=== PATIENT | female | born 1945 | race Caucasian/White ===

== ENCOUNTER 2016-07-20 10:58 | Inpatient (IN) | payer OTHER ==
--- NOTE | ~2016-07-20 | XA203 ---
[facility] A Service of [facility] & [facility] RADIOLOGY TEXT RESULTS PATIENT: DAWOOD MUÑOZ LOCATION: [address]07[address]03 : [birth year] UNIT #: [id number] AGE: [address]: Ana Farias MD SEX: F ORDER DR: [id number] [facility] [address] [facility] [place] [facility]. [place], [place] [address] [id number] I MR#: [id number] #: [id number] NAME: DAWOOD MUÑOZ : 1945 SEX: F STUDY DATE/TIME: 07/24/2016 10:39 UNIT: [facility] ROOM: [facility] STUDY DESCRIPTION: XA Thoracentesis Attending Physician: Ana Farias M.D. Referring Physician: Gee Lopes M.D. Ordering Physician: Ana Farias M.D. Primary Care Physician: Kristin Lopez M.D. MEDICAL IMAGING REPORT This report is preliminary unless electronic signature is present EXAM Ultrasound of the left hemithorax. DATE OF EXAM 07/24/2016 HISTORY left pleural effusion, increasing oxygen requirement FINDINGS Preliminary ultrasound of the left hemithorax was performed. This demonstrated dense consolidation throughout the left hemithorax and the procedure was subsequently terminated. IMPRESSION Insufficient volume of fluid for thoracentesis at this time. Dictated by... Raquel Mclain M.D. THIS IS AN ELECTRONICALLY VERIFIED REPORT Raquel Mclain M.D. at 07/25/2016 8:01 PM AFF/julio TD: 07/24/2016 21:39 JOB #: [id number] MEDICAL IMAGING REPORT COPY
--- NOTE | ~2016-07-20 | CO ---
Unit #: [id number] #: [id number] Patient: DAWOOD MUÑOZ [id number] [address] [place], [place] [address] [id number] I MR#: [id number] NAME: DAWOOD MUÑOZ ROOM: [facility] Age: 70 Sex: F Admission Date: 07/20/2016 : 1945 Attending Physician: Ana Farias M.D. Primary Care Physician: Kristin Lopez M.D. Consultation Date: 07/25/2016 CONSULTATION REPORT REASON FOR CONSULTATION Lung cancer, please evaluate. HISTORY OF PRESENT ILLNESS Ms. Dawood Muñoz is a 70-year-old with a history of severe COPD, chronic hypoxemia, hypertension, hyperlipidemia, cervical cancer, who presents to the emergency room complaining of shortness of breathing on 07/20/2016. She reported she had a week history of shortness of breathing productive cough. In the ER, O2 saturations were 93% on 2 L, she was tachycardic with a pulse rate of 123 and a respiratory rate of 25. Chest x-ray followed by CT scan showed dense consolidation involving the left lung with a left pleural effusion. Her right upper lobe lung mass was noted and she admit for further evaluation including treatment for pneumonia. During hospitalization, consolidation of the left lung became progressively worse and she underwent diagnostic bronchoscopy with bronchoalveolar lavage on 07/22/2016. Bronchoscopy; the left main, left upper lobe, and left lower lobe, and lingular bronchial segment and bronchi were all swollen with no significant secretions. Bronchoalveolar lavage obtained from these sections showed malignant cells consistent with non-small cell lung cancer. She subsequently underwent and doing the same procedure. Bronchoscopy of the right mainstem and right upper lobe bronchial tree and underwent a bronchial biopsy of the presumed right upper lobe lung mass which showed suspicious aggregate of highly atypical cells suspicious for malignancy. Ms. Muñoz is currently is barely oxygenating on high-flow oxygen and is currently do not resuscitate. She tells me that she has had no changes in appetite and weight except what accompanied the admission. She was evaluated by Dr. Matt Swenson in 2011 in [facility] for a right lung lesion which apparently was told to be benign. PAST SURGICAL HISTORY Cervical cancer diagnosed 5 years ago which was treated with conization, radiation therapy, and chemotherapy. Severe COPD, hypertension, hyperlipidemia, depression, and anxiety. PAST SURGICAL HISTORY Lung biopsy, cervical conization, and cardiac catheterization. ALLERGIES She is allergic to Keflex. HOME MEDICATIONS Include Avapro and inhalers at the time of admission. Unit #: [id number] #: [id number] Patient: DAWOOD MUÑOZ SOCIAL HISTORY She is single. Lives by herself. Does not drink any alcohol. She smokes a pack a day. She has one daughter who lives locally and two sons in the [place]. FAMILY HISTORY Negative for cancer. REVIEW OF SYSTEMS A 14-point review of system taken. CONSTITUTIONAL: As discussed above. EYES: Negative. EARS, NOSE, MOUTH, AND THROAT: Negative. CARDIOVASCULAR: No chest pain or palpitation. RESPIRATORY: As discussed above. GASTROINTESTINAL: Negative. GENITOURINARY: Negative. NEUROLOGIC: Negative. ALLERGIC/LYMPHATIC: Negative. SKIN: Negative. PSYCHIATRIC: Normal affect. PHYSICAL EXAMINATION GENERAL: She is awake, alert, and oriented x3, lying in bed, in moderate distress secondary to tachypnea, as her daughter is at bedside. VITAL SIGNS: Temperature is 99.2, pulse is 88, respiratory rate is 18, blood pressure 126/44, O2 saturations is 94% on high-flow oxygen. HEENT: Shows pupils are equal and reactive well to light. Mucous membranes are slightly dry. NECK: Without adenopathy, JVD, or thyromegaly. LUNGS: Coarse breath sounds over the left lung. HEART: First and second heart sounds are heard with mild tachycardia. ABDOMEN: Soft and nontender. Liver and spleen are not palpable. EXTREMITIES: Warm and good pulses. No edema, cyanosis, or clubbing. NEUROLOGIC: She is awake, alert, and oriented x3 without any focal findings. DIAGNOSTIC STUDIES LABORATORY RESULTS: CBC with a white count of 16.5, hemoglobin 13.8, platelets 189,000. Her basic metabolic panel shows a BUN of 24, creatinine is 1. IMAGING STUDIES: CT scan of the chest was personally reviewed by me and with Dr. Horton of Pulmonary, it shows a white-out of the left lung along with a spiculated mass in the right upper lobe, prominent precarinal lymph node, and indeterminate nondisplaced fracture of the right fifth and sixth ribs. ASSESSMENT AND PLAN Ms. Dawood Muñoz is a 70-year-old with a history of severe chronic obstructive pulmonary disease, longstanding tobacco usage, admitted with dense consolidation of the left lung presumed to be a community-acquired pneumonia. This has been treated with broad-spectrum antibiotics without any treatment improvement and continued hypoxemia requiring high flow oxygen. She has had a bronchoscopy with bronchoalveolar lavage revealing a malignancy of the left lower lobe of the lung and suspicious cells from right upper lobe lung biopsy of a previously biopsied lung mass, according to her previous biopsy of lung mass was benign. I had an extensive Unit #: [id number] #: [id number] Patient: DAWOOD MUÑOZ discussion with patient, daughter, and Dr. Horton. At this point, her respiratory status is extremely precarious and she has made herself do not resuscitate given the low likelihood extubation if she was to be intubated. I have discussed that certainly she has an advanced lung cancer of the left lung with possible lymphangitic spread and possible metastasis to the right lung although this was previously biopsied as benign and current biopsy only shows suspicious cells. Discussed with her that palliative chemotherapy or in fact any therapy including immune checkpoint inhibitor therapy would be highly unlikely to reverse current course of respiratory failure. If she did improve certainly these would be viable options after confirmation of stage 2 disease. Given her severe chronic obstructive pulmonary disease, hypoxemia, and need for high-flow oxygen, she is critically ill. She requests a second pulmonary opinion, I will get Dr. Ash to see her during this hospitalization. Discussed we will follow her during hospital stay to await any improvement. Discussed about her advanced directives. Thank you for allowing me to participate in her care and I will follow with you. Dictated by... Eliseo Elder M.D. JAMIA/andrade TD: 07/26/2016 05:54 JOB #: [id number] CONSULTATION REPORT X Eliseo Elder MD X CONSULTATION REPORT
--- NOTE | ~2016-07-20 | CT57 ---
[facility] A Service of [facility] & [facility] RADIOLOGY TEXT RESULTS PATIENT: DAWOOD MUÑOZ LOCATION: [address]07-03 : [birth year] UNIT #: [id number] AGE: [address]: Ana Farias MD SEX: F ORDER DR: [id number] [facility] [address] [facility]. [place], [place] [address] [id number] I MR#: [id number] Acc #: [id number] NAME: DAWOOD MUÑOZ : 1945 SEX: F STUDY DATE/TIME: 07/24/2016 10:58 UNIT: [facility] ROOM: [facility] STUDY DESCRIPTION: CT Chest Wo Cont Attending Physician: Ana Farias M.D. Ordering Physician: Raquel Mclain M.D. Primary Care Physician: Kristin Lopez M.D. MEDICAL IMAGING REPORT This report is preliminary unless electronic signature is present EXAM CT of the chest without contrast HISTORY Ms. Muñoz is a 70-year-old woman who underwent a CT scan of the chest on 07/20/2016 for cough and congestion. This demonstrated dense consolidation throughout the left lung which was favored to represent pneumonia. She was referred for thoracentesis on 07/22/2016 but was not found to have significant fluid at that time. She has developed worsening opacification of the left hemithorax when compared to prior studies and her oxygen requirement has increased. A repeat evaluation for thoracentesis was performed which, again, appeared to show dense consolidation with minimal fluid. This exam is performed for further evaluation. TECHNIQUE Axial CT images were obtained from thoracic inlet through the dome of the diaphragm. No intravenous contrast material was administered. This CT exam was performed with one or more of the following radiation dose reduction techniques: automatic exposure control, adjustment of mA and/or kV according to patient size, and iterative reconstruction. COMPARISON Comparison is made to the prior chest CT from 07/20/2016. FINDINGS Since prior examination, this patient has developed complete opacification of the left hemithorax. This is related to dense consolidation throughout the left lung. Patient's left main stem bronchus is nearly occluded. Small amount of pleural fluid is noted but the majority of the appearance of the left hemithorax is related to this dense consolidation. This patient has a small right pleural effusion which has increased when compared to the prior study. Irregularly marginated right upper lobe STS. [facility] A Service of [facility] & [facility] RADIOLOGY TEXT RESULTS PATIENT: DAWOOD MUÑOZ LOCATION: [facility] CICCU2-02 : 41 UNIT #: [id number] AGE: [address]: Ana Farias MD SEX: F ORDER DR: nodule is again seen and some images I do measure as slightly larger measuring up to 2.3 x 2.0 cm, previously 2.0 x 1.9 cm. Interval increase in size would be more suggestive of a benign process, but certainly its morphology remains concerning in this patient with background emphysematous changes. The thyroid gland, trachea, and esophagus appear unremarkable. There is a small pericardial effusion. A precarinal lymph node is increased in size now measuring 1.8 x 1.6 cm. Thoracic aorta measures within normal size limits. Images through the upper abdomen demonstrate a lipid-rich left adrenal adenoma. There is also an exophytic structure arising from the left kidney which measures higher in density than a simple cyst, is incompletely assessed on this study and measures at least 3.3 x 2.8 cm. A second hypoattenuating lesion is seen on the right kidney which measures about 9 mm in size. It also measures higher density than a simple cyst. Review of bony windows demonstrates old right-sided rib fractures. I do not see any aggressive osseous abnormalities. IMPRESSION 1. Since prior study, this patient has developed complete opacification of the left hemithorax. This is primarily related to dense consolidation and atelectasis of the left lung. There is severe obstruction of the patient's left main stem bronchus with complete obstruction of the bronchi to the lower and upper lobes. While the patient does have perhaps moderate pleural fluid on the left, it is not amenable to drainage due to surrounding lung. While findings within the left hemithorax could reflect pneumonia, the possibility of malignancy should also be considered. Further evaluation with bronchoscopy is strongly recommended. 2. Within the right upper lobe, there is an irregularly marginated mass. I measure it as slightly larger on some of the images. Interval change in size, would certainly be suggestive of a benign process but its morphology remains concerning given background emphysematous changes. Continued surveillance is recommended. 3. A small right pleural effusion has increased when compared to the prior study. 4. Precarinal lymph node has increased in size when compared to prior study likely reactive. Please note that while findings 5. Patient has 2 low-attenuation lesions arising from the kidneys. These measure higher in density than simple cysts. They may reflect, proteinaceous or hemorrhagic cysts, but I would suggest further evaluation with dedicated renal ultrasound. 6. Lipid-rich left adrenal adenoma. 7. Small pericardial effusion. 8. Also noted, but not mentioned in the report, is a left breast nodule. This appears to have a biopsy clip associated with it and correlation with those biopsy results is recommended. STS. [facility] A Service of [facility] & [facility] RADIOLOGY TEXT RESULTS PATIENT: DAWOOD MUÑOZ LOCATION: [place] [address] : [birth year] UNIT #: [id number] AGE: [address]: Ana Farias MD SEX: F ORDER DR: Dictated by... Raquel Mclain M.D. THIS IS AN ELECTRONICALLY VERIFIED REPORT Raquel Mclain M.D. at 07/24/2016 5:31 PM AFF/aa TD: 07/24/2016 14:44 JOB #: [id number] MEDICAL IMAGING REPORT COPY
--- NOTE | ~2016-07-20 | CO ---
Unit #: [id number] #: [id number] Patient: DAWOOD MUÑOZ [id number] [facility]. [place] [id number] [facility]. [place], [place] [address] [id number] I MR#: [id number] NAME: DAWOOD MUÑOZ. ROOM: [facility] Age: 70 Sex: F Admission Date: 07/20/2016 : 1945 Attending Physician: Ana Farias M.D. Primary Care Physician: Kristin Lopez M.D. CONSULTATION REPORT We were asked to see her by Dr. Anamaria Horton for second opinion about her lung cancer. HISTORY OF PRESENT ILLNESS Ms. Muñoz is a very pleasant 70-year-old female, who unfortunately smoked right up until this recent admission. She was admitted on 07/20/2016 with increasing shortness of air. She was thought to have left lower lobe pneumonia and it was noted that she had a right upper lobe lung density. She underwent bronchoscopy by Dr. Anamaria Horton on 07/22/2016 with a swelling of the left-sided bronchi; although, apparently he could get through to the left upper lobe and the left lower lobe. He did the BAL first and he did the right upper lobe transbronchial biopsies second. The BAL from the left lower lobe was consistent with non-small cell lung cancer, and the right upper lobe biopsy was suspicious. She has had some issues after the bronchoscopy went into respiratory failure, required BiPAP and is presently on a heated high-flow, high humidity oxygen at 63%. She does have a little bit of cough. Surprisingly, she said she actually gained weight lately. She is eating here in the hospital. She complains of some mid chest pain, but she did not complain of any bone pain. She did have a history of COPD. PAST MEDICAL HISTORY Otherwise significant for cervical cancer. I thought that was about 2009 or so and she did have chemo and maybe radiation for that. History of hypertension. She had a heart catheterization about 2012. She had a needle biopsy at [facility] of a nodule about 2012 and that was negative and then was followed briefly, but then apparently she moved to [place] and I do not think she followed it anymore after that. MEDICATIONS On admission had included metoprolol 50 mg p.o. daily, Zoloft 100 mg p.o. daily, Protonix 40 mg p.o. daily, Avapro 300 mg p.o. daily, Lozol 2.5 mg p.o. daily, Ventolin 2 puffs q.4 p.r.n., Lipitor 20 mg p.o. at bedtime, Combivent MDI q.6 p.r.n. ALLERGIES Keflex, penicillin, influenza virus. SOCIAL HISTORY She smoked up until early this admission. I think about a pack a day. FAMILY HISTORY Significant for brother and a sister with COPD. Unit #: [id number] #: [id number] Patient: DAWOOD MUÑOZ REVIEW OF SYSTEMS She has had diarrhea off and on. She says ever since her chemo, I guess for her cervical cancer, this is not new. She did lose weight after her , but as I said, she actually says she has gained weight lately. Really not complained of nausea. No leg swelling. No skin complaints. All other systems are negative except as mentioned. PHYSICAL EXAMINATION GENERAL: She present as an older female, in no acute distress. VITAL SIGNS: Temperature was 98.1, pulse 64, respirations 18, blood pressure 113/46, saturation 92%, but she is on 63% high humidified, high-flow oxygen. NECK: Without adenopathy. LUNGS: Evaluation of her lungs reveals that her breathing is not labored. She has very significant decreased breath sounds left side. I can hear some breath sounds left anteriorly and virtually no breath sounds left posteriorly. She does have fairly clear breath sounds on the right. HEART: Regular. ABDOMEN: Soft, and bowel sounds are present. EXTREMITIES: Without edema. NEUROLOGIC: She is awake and alert. DIAGNOSTIC STUDIES IMAGING STUDIES: Her CAT scan to my exam had revealed a right upper lobe density. To my exam, she had a left pleural effusion, a left lower lobe infiltrate and it really looked to me like she had some cutoff of air flow at the left main stem. I was actually quite surprised that Dr. Anamaria Horton was able to get the scope as far in as he could on that left side. Her pathology was read as suspicious for malignancy, highly atypical cells on the right upper lobe biopsy. The cytology was read as positive for malignant cells, most suggestive of a poorly differentiated non-small cell lung cancer, and that was the bronchoalveolar lavage. I cannot find anything from thoracentesis. Her cultures revealed rare yeast from the bronch and sputum was 2+ normal respiratory raj. White blood cell count was 22.7, hemoglobin and hematocrit of 14.1 and 43.6, 186,000 platelets. Serum chemistries; BUN was 27, creatinine was 1, magnesium was low at 1.4. Albumin low at 2.4. She had a blood gas from the 19 at 2 L, pH of 7.48, pCO2 of 40, PO2 of 62. IMPRESSION 1. Non-small cell lung cancer, which appears bilaterally in my opinion and probably therefore is stage IV. The only other consideration, which probably was not going to matter in this case is that there are two different cancers. They could be indeed two different non-small cell lung cancers. Either way that probably will not change much. 2. Acute versus acute on chronic hypoxemic respiratory failure. 3. Left pleural effusion. 4. Left lower lobe pneumonia, which may be postobstructive. The question is whether that obstruction can be improved in any way. The description of the bronchus such that the mucosa was edematous and I do not know whether brachytherapy would be helpful, because it would absolutely depend on that edema being because of submucosal tumor. 5. Chronic obstructive pulmonary disease. PLAN She obviously is not a surgical candidate. Considerations would be chemotherapy plus or minus radiation. Radiation to the right upper lobe Unit #: [id number] #: [id number] Patient: DAWOOD MUÑOZ mass in the absence of treating anything on the left side would obviously be of no value. The question is whether she can tolerate chemotherapy and I would absolutely defer to Oncology for that opinion; although, I will say that it is interesting that she supposedly gained weight lately. I will be happy to discuss this as needed and note that I have discussed this all with her son, Imtiaz. I have somewhat discussed it with the patient after I found out how much she knew. I have not talked about prognosis to the patient although. I certainly have suggested to her son that her prognosis is poor. Thank you very much for allowing me to participate in care of this patient. Dictated by... Manuel Garvey/andrade TD: 07/27/2016 15:16 JOB #: [id number] CC: Manuel Llamas M.D. Angela Wetherton, M.D. CONSULTATION REPORT X Gil Ash MD CONSULTATION REPORT
--- NOTE | ~2016-07-20 | DS ---
Unit #: [id number] #: [id number] Patient: DAWOOD MUÑOZ [id number] [address] [address] [id number] I MR#: [id number] NAME: DAWOOD MUÑOZ. ROOM: [facility] Age: 70 Sex: F Admission Date: 07/20/2016 : 1945 Discharge Date: 07/29/2016 Attending Physician: José Manuel Demarco M.D. Primary Care Physician: Kristin Lopez M.D. DISCHARGE SUMMARY SUMMARY Please see Dr. Farias's discharge summary for details of hospital stay. Potentially, through her hospital course, the patient was noted to have acute hypoxic respiratory failure, stage 4 non-small cell lung carcinoma, malignant effusion, postobstructive pneumonia. Numerous services were consulted including HMA, pulmonary services, Hem/Onc services as well as radiation oncology. Unfortunately, her prognosis was deemed to be very poor. She continued to require BiPAP support and, unfortunately, made insignificant progress. Oncology services as well as radiation recommended no further treatment options that are available. Discussion was initiated with patient's son who is present at bedside. He was appraised of the overall poor prognosis and he wished for the patient to be initiated on comfort care measures only and, therefore, in accordance with his wishes as well as family wish, the patient will be started on comfort care measures only including withdrawal of BiPAP and other supportive measures and morphine, Ativan and Robinul will now be initiated. CURRENT CLINICAL DIAGNOSIS 1. Non-small cell lung carcinoma, stage 4, with malignant pleural effusion. 2. Acute hypoxic respiratory failure. 3. Postobstructive pneumonia. 4. Anxiety. 5. Prior history of cervical cancer. 6. Failure to thrive. 7. Tobacco abuse. 8. Hypertension. DISPOSITION Comfort care measures only. Dictated by... José Manuel Demarco M.D. ISN/df Unit #: [id number] #: [id number] Patient: DAWOOD MUÑOZ TD: 08/01/2016 06:40 JOB #: [id number] DISCHARGE SUMMARY X José Manuel Demarco MD DISCHARGE SUMMARY
--- NOTE | ~2016-07-20 | A ---
[facility] Nutrition Therapy DATE: 07/28/16 Patient: DAWOOD MUÑOZ Physician: MICHELLE Address: [address] Room/Bed: [address], Zip: [place] [address] Admit Date: 07/20/16 Date of : 41 Height: 5 7 Weight: 145 66 NUTRITIONAL ASSESSMENT: REASON: LOS IN ICU ASSESSMENT PT IS 70 Y.O. FEMALE ADMITTED FOR SOA, ACUTE RESPIRATORY FAILURE PMH: SEVERE COPD, STAGE IV NON-SMALL CALL LUNG CANCER, HTN, HLD, CERVICAL CANCER S/P CHEMOTHERAPY & RADIATION Anthropometrics: 5'7", WT: 135# (BEDSIDE) (61 KG), BMI: 21.1, 100%IBW Labs: GLU: 130, BUN: 32, CA+:8.2, ALB: 2.4, M.4 Meds: COLACE, SOLU-MEDROL, ZOFRAN, LIPITOR, PROTONIX, LEVAQUIN I/O & Bowel function: 2213/1421, 1 BM NOTED Skin Integrity: DRY SKIN NOTED ALL OVER BODY Estimated Nutrition Needs: INCREASED NUTRIENT NEEDS 2' CURRENT CONDITION, PMH, FAIR PO INTAKE AND APPETITE Assessment: CHART REVIEWED AND EVENTS NOTED. PT SEEN FOR LOS IN ICU (5+ DAYS). PT REPORTS APPETITE SLOWLY IMPROVING, NOTING NO C/O N/V/D. PT HAD BREAKFAST TRAY AT BEDSIDE-NOTED PT ATE ~90%. PT REPORTS DRINKING 3 ENSURE SHAKES DAILY IN ADDITION. PT REPORTS HER WEIGHT HAS FLUCTUATED PAST FEW YEARS. THIS RD ENCOURAGED ADEQUATE KCAL, PROTEIN AND FLUID INTAKE, PT AGREED. PT REPORTED NO DIET QUESTIONS AT THIS TIME. RD TO FOLLOW. SEE RECOMMENDATIONS BELOW. Dx: INADEQUATE NUTRIENT INTAKE R/T DECREASED APPETITE, CURRENT CONDITION AEB PT REPORT ABOVE. Intervention: 1. HH DIET 2. ENSURE SHAKES TID Monitoring, Evaluation and Goals: 1. PO INTAKE; PROVIDE AND CONSUME ADEQUATE NUTRITION W/NO C/O N/V/D (PO>50%) 2. WEIGHTS; MAINTAIN WEIGHT, PREVENT ANY WEIGHT LOS 3. LABS; WNL 4; GI; PROMOTE REGULAR GI FUNCTION MONITOR: -PO INTAKE/APPETITE [facility] Nutrition Therapy DATE: 07/28/16 Patient: DAWOOD MUÑOZ Physician: MICHELLE Address: [address] Room/Bed: [facility] [facility], Zip: [place] [address] Admit Date: 07/20/16 Date of : 41 Height: 5 7 Weight: 145 66 -WEIGHTS -SUPPLEMENT INTAKE -LABS Recommendations: 1. CONTINUE TO ENCOURAGE ADEQUATE KCAL, PROTEIN AND FLUID INTAKE 2. IF PO INTAKE <50%, RECOMMEND TO CHANGE DIET TO REGULAR TO ALLOW MORE FOOD CHOICES RD WILL F/U PER PROTOCOL PT IS MODERATELY COMPROMISED Respectfully, AZIZA VILLALBA MS, RD, LD Food and Nutritional Services [facility] cc: client file
--- NOTE | ~2016-07-20 | CT71 ---
[facility] A Service of [facility] & [facility] RADIOLOGY TEXT RESULTS PATIENT: DAWOOD MUÑOZ LOCATION: [address] : [birth year] UNIT #: [id number] AGE: [address]: Ana Farias MD SEX: F ORDER DR: [id number] [facility] [address] [facility]. [place], [place] [address] [id number] I MR#: [id number] Acc #: [id number] NAME: DAWOOD MUÑOZ : 1945 SEX: F STUDY DATE/TIME: 07/22/2016 16:22 UNIT: [facility] ROOM: [facility] STUDY DESCRIPTION: CT Head Wo Contrast Attending Physician: Ana Farias M.D. Ordering Physician: Gee Lopes M.D. Primary Care Physician: Kristin Lopez M.D. MEDICAL IMAGING REPORT This report is preliminary unless electronic signature is present EXAM Head CT without contrast HISTORY Episode of left-sided weakness today lasting 10 minutes. TECHNIQUE Axial images were obtained without contrast. This CT exam was performed with one or more of the following radiation dose reduction techniques: automatic exposure control, adjustment of mA and/or kV according to patient size, and iterative reconstruction. FINDINGS Generalized atrophy is noted. It is more prominent around the cortex than centrally. There is no evidence of mass lesion, hemorrhage or edema. No midline shift is noted. Extraaxial structures are unremarkable. IMPRESSION Atrophy. No acute findings. Dictated by... Panda Avila M.D. THIS IS AN ELECTRONICALLY VERIFIED REPORT Panda Avila M.D. at 07/23/2016 10:24 AM RLF/angelia TD: 07/22/2016 21:46 JOB #: [id number] [facility] A Service of [facility] & [facility] RADIOLOGY TEXT RESULTS PATIENT: DAWOOD MUÑOZ LOCATION: [facility] : 43 UNIT #: [id number] AGE: [address]: Ana Farias MD SEX: F ORDER DR: MEDICAL IMAGING REPORT COPY
--- NOTE | ~2016-07-20 | CT23 ---
[facility] A Service [facility] RADIOLOGY TEXT RESULTS PATIENT: DAWOOD MUÑOZ LOCATION: [address]03 : [birth year] UNIT #: [id number] AGE: [address]: Ana Farias MD SEX: F ORDER DR: [id number] [facility] [address]. [place], [place] [address] [id number] I MR#: [id number] Acc #: [id number] NAME: DAWOOD MUÑOZ : 1945 SEX: F STUDY DATE/TIME: 07/22/2016 16:28 UNIT: [facility] ROOM: [facility] STUDY DESCRIPTION: CT Angio Neck Attending Physician: Ana Farias M.D. Referring Physician: Gee Lopes M.D. Ordering Physician: Donnie Romero M.D. Primary Care Physician: Kristin Lopez M.D. MEDICAL IMAGING REPORT This report is preliminary unless electronic signature is present EXAM CT angiogram of the neck. DATE OF EXAM 07/22/2016 HISTORY Left-sided weakness today lasting 10 minutes to evaluate for CVA. COMMENT CT angiography of the head and neck vessels performed during the intravenous administration of 100 mL of Isovue-370 with imaging acquired in the axial plane followed by multiple reconstructed and reformatted images for the purpose of 3-D CT angiography of the head and neck vessels. COMPARISON There is an earlier noncontrast head CT. TECHNIQUE NOTE: This CT exam was performed with one or more of the following radiation dose reduction techniques: automatic exposure control, adjustment of mA and/or kV according to patient size, and iterative reconstruction. NOTE Abnormalities are seen in the chest. Please refer back to a chest CT from 07/20/2016. No prior study of the neck vessels. FINDINGS Please see CTA head and neck performed 07/22/2016 (order #[id number]) for results. [facility] A [facility] RADIOLOGY TEXT RESULTS PATIENT: DAWOOD MUÑOZ LOCATION: [address] : [birth year] UNIT #: [id number] AGE: [address]: Ana Farias MD SEX: F ORDER DR: STAT * RESULT Dictated by... Vibha Salcido M.D. THIS IS AN ELECTRONICALLY VERIFIED REPORT Vibha Salcido M.D. at 07/22/2016 11:43 PM ANUP/julio TD: 07/22/2016 18:01 JOB #: [id number] MEDICAL IMAGING REPORT COPY
--- NOTE | ~2016-07-20 | HP ---
Unit #: [id number] #: [id number] Patient: DAWOOD MUÑOZ [id number] [facility]. [place], [place] [address] [id number] I MR#: [id number] NAME: DAWOOD MUÑOZ. ROOM: 25428 Age: 70 Sex: F Admission Date: 07/20/2016 : 1945 Attending Physician: Linda Love M.D. Primary Care Physician: Kristin Lopez M.D. HISTORY AND PHYSICAL CHIEF COMPLAINT Shortness of air. HISTORY OF PRESENT ILLNESS The patient is a 70-year-old female with past medical history of COPD, hypertension, hyperlipidemia, cervical cancer, depression anxiety, who presented to the emergency department for evaluation of the above. The patient states that she has had a one week history of increasing shortness of breath, productive cough. She denies any chest pain, no fever. She states that her appetite has been okay. She denies any vomiting or diarrhea. No urinary symptoms. She has paroxysmal nocturnal dyspnea that is not a new problems. She denies orthopnea. No leg swelling. She has had dyspnea on exertion when walking across the room. She denies any change in her weight. No night sweats. Upon arrival in the emergency department, the patient's oxygen saturation was 93% on 2 liters, pulse 123, respirations 25. Chest x-ray shows left mid and lower lung opacity. CT of the chest showed dense consolidation involving the left lung with left pleural effusion. A right upper lobe mass was also noted. She was given Solu-Medrol as well as Rocephin and azithromycin in the emergency department. She is being admitted to [facility] for evaluation and further treatment. PAST MEDICAL HISTORY 1. Admission to [facility] 06/08/2012 for COPD exacerbation. 2. COPD not on home oxygen. 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 3. Hypertension. 4. Hyperlipidemia. 5. Cervical cancer, status post cervical conization, radiation, and chemotherapy five years ago. 6. Depression and anxiety. PAST SURGICAL HISTORY 1. Cardiac catheterization, 06/04/2012. Showed no hemodynamically significant fixed coronary artery stenosis and ejection fraction of about 60%. 2. Lung biopsy. 3. Cervical conization. ALLERGIES 1. Keflex. Unit #: [id number] #: [id number] Patient: DAWOOD MUÑOZ 2. Penicillin. 3. Influenza virus. Keflex is listed as an allergy; however, the patient received Rocephin in the emergency department without a problem. HOME MEDICATIONS The patient is not sure of her home medications. They include: 1. Avapro. 2. Some "inhalers." Home medications will need to be reviewed and verified. SOCIAL HISTORY The patient lives alone. There is no alcohol use. She smokes a pack of cigarettes daily. She walks without assistance. CODE STATUS FULL CODE. FAMILY HISTORY Notable for diabetes. REVIEW OF SYSTEMS A 10-point review of systems is negative except as indicated in the HPI. Per my discussion with the ER staff, the patient's oxygen saturation was in the 70s per EMS report. PHYSICAL EXAMINATION VITAL SIGNS: Temperature 98.1, pulse 123, respirations 25, blood pressure 154/87, oxygen saturation 93% on 2 liters. GENERAL: The patient is a female who is awake and alert. HEENT: Head is atraumatic. Mucous membranes are moist. NECK: Supple. Trachea is midline. LUNGS: Decreased breath sounds on the left. There are occasional expiratory wheezes on the right. Breathing is mildly labored with conversation. HEART: Regular rate and rhythm. ABDOMEN: Soft, nontender. Bowel sounds present in all four quadrants. EXTREMITIES: Nontender with no pedal edema. NEUROLOGIC: Patient is awake and alert. She follows commands. PSYCHIATRIC: Mood and affect are normal. Patient is cooperative. SKIN OF EXAMINED AREAS: Warm and dry. DIAGNOSTIC STUDIES LABORATORY: Arterial blood gas shows pH 7.48, pCO2 of 40.5, pO2 of 62.5 on 2 liters. Troponin less than 0.05. Complete blood count notable for white blood cell count of 13.6. INR is 1.1. Lactic acid is 1.1. Comprehensive metabolic panel notable for a potassium of 3.4, chloride 95, glucose 116, calcium 8.3, albumin 3, alkaline phosphatase 93. BNP 221. IMAGING: Chest x-ray shows consolidation involving the left lung. CT of the chest shows dense consolidation involving the left lung with associated effusion. There is also a 3 cm mass in the right upper lobe. CARDIOVASCULAR: EKG shows sinus tachycardia with premature atrial complexes at a rate of 113 beats per minute. Unit #: [id number] #: [id number] Patient: DAWOOD MUÑOZ ASSESSMENT The patient is a 70-year-old female with: 1. Acute respiratory failure, hypoxic. 2. Pneumonia, community acquired. The patient received Rocephin and azithromycin in the emergency department. 3. Sepsis. 4. Left pleural effusion. 5. Right lung mass. 6. Chronic obstructive pulmonary disease exacerbation with continued tobacco abuse. The patient received Solu-Medrol in the emergency department. 7. Mild hypokalemia. 8. Hypertension. 9. Hyperlipidemia. 10. Cervical cancer, status post cervical conization, radiation, chemotherapy five years ago. 11. Depression anxiety. PLAN 1. Admit to intermediate level. 2. Healthy-heart diet. 3. Normal saline at 75 mL per hour. 4. Blood cultures x2. 5. Sputum culture and sensitivity. 6. Supplemental oxygen 2-4 liters to maintain saturations greater than 92%. 7. DuoNeb q.4 h. while awake and q.2 h. p.r.n. 8. Solu-Medrol 80 IV q.12 h. 9. Procalcitonin level. 10. Rocephin and azithromycin pending further workup. 11. Mucinex 600 mg p.o. b.i.d. 12. Sepsis protocol with repeat lactic acid. 13. Consult Dr. Colbert regarding pleural effusion and lung mass. 14. Serial cardiac enzymes. 15. Replace potassium. 16. Check magnesium level. 17. P.r.n. hydralazine. 18. P.r.n. Tylenol. 19. Protonix for prophylaxis since the patient will be on Solu-Medrol. 20. SCDs for DVT prophylaxis. 21. Repeat labs in the morning including magnesium. 22. Additional workup and consultants based on above. Dictated by Manuel Dodson/hans TD: 07/20/2016 15:31 JOB #: [id number] Unit #: [id number] #: [id number] Patient: DAWOOD MUÑOZ HISTORY AND PHYSICAL X Linda Love MD X HISTORY AND PHYSICAL
--- NOTE | ~2016-07-20 | CT57 ---
[facility] A Service of [facility] & [facility] RADIOLOGY TEXT RESULTS PATIENT: DAWOOD MUÑOZ LOCATION: [facility] 310-01 : 43 UNIT #: [id number] AGE: [address]: Ana Farias MD SEX: F ORDER DR: [id number] [facility] [address] [facility]. [place], [place] [address] [id number] MR#: [id number] Acc #: [id number] NAME: DAWOOD MUÑOZ. : 1945 SEX: F STUDY DATE/TIME: 07/20/2016 13:17 UNIT: [facility] ROOM: 62047 STUDY DESCRIPTION: CT Chest Wo Cont Attending Physician: Linda Love M.D. Ordering Physician: Anthony Little M.D. Primary Care Physician: Kristin Lopez M.D. MEDICAL IMAGING REPORT This report is preliminary unless electronic signature is present EXAM CT chest without contrast. INDICATION Cough and chest congestion for the past 2-[address] of the chest. This CT exam was performed with one or more of the following radiation dose reduction techniques: automatic exposure control, adjustment of mA and/or kV according to patient size, and iterative reconstruction. COMPARISON STUDIES None. FINDINGS There is dense consolidation throughout the left lung most significant in the mid to lower lung zones. There is a 3 cm masslike density in the right upper lobe. No pneumothorax. Low-attenuation thyroid lobe nodules. Left pleural effusion with a trace right effusion. A precarinal node measures up to 2.2 cm. A 2 cm nodule in the left breast has a biopsy clip. Correlate with pathology results. There is low attenuation of both adrenal glands, in keeping with adenomas. Age-indeterminate nondisplaced fractures of the right fifth and sixth ribs. No aggressive appearing bone lesion. IMPRESSION 1. Dense consolidation throughout a majority of the left lung, favored to represent pneumonia. Left pleural effusion. 2. Trace right effusion. 3. 3 cm masslike density in the right upper lobe. This could represent pneumonia or malignancy. Recommend close attention on followup to [facility] A Service of [facility] & [facility] RADIOLOGY TEXT RESULTS PATIENT: DAWOOD MUÑOZ LOCATION: [facility] 310-01 : 43 UNIT #: [id number] AGE: [address]: Ana Farias MD SEX: F ORDER DR: document improvement in pulmonary findings. 4. Prominent precarinal node could be reactive or metastatic, should be followed as well. 5. Indeterminate nondisplaced fractures of the right fifth and sixth ribs. Dictated by... Silas Huffman M.D. THIS IS AN ELECTRONICALLY VERIFIED REPORT Silas Huffman M.D. at 07/21/2016 9:51 AM JAIME/kaushal TD: 07/20/2016 15:27 JOB #: [id number] MEDICAL IMAGING REPORT COPY
--- NOTE | ~2016-07-20 | EKG ---
PATIENT: DAWOOD MUÑOZ UNIT #: [id number] Ventricular Rate: 113 BPM Atrial Rate: 113 BPM P-R Interval: 122 ms QRS Duration: 86 ms Q-T Interval: 364 ms QTC Calculation(Bezet): 499 ms P Gail: 61 degrees Calculated R Gail: 96 degrees Calculated T Gail: 43 degrees Diagnosis Line: Sinus tachycardia with Premature atrial complexes Diagnosis Line: Rightward axis Diagnosis Line: ST and T wave abnormality, consider anterolateral Diagnosis Line: ischemia Diagnosis Line: Abnormal ECG Diagnosis Line: When compared with ECG of 02-AUG-2015 22:07, Diagnosis Line: Premature atrial complexes are now Present Diagnosis Line: T wave inversion now evident in Inferior leads Diagnosis Line: T wave inversion now evident in Anterolateral Diagnosis Line: leads Diagnosis Line: Confirmed by SUSAN DAVILA MD ([id number]) on Diagnosis Line: 07/20/2016 5:22:12 PM INTERPRETING MD: TAD
--- NOTE | ~2016-07-20 | CR72 ---
[facility] A Service of [facility] RADIOLOGY TEXT RESULTS PATIENT: DAWOOD MUÑOZ LOCATION: [facility] 310-01 : 43 UNIT #: [id number] AGE: [address]: Ana Farias MD SEX: F ORDER DR: [id number] [facility] [address] [facility]. [place], [place] [address] [id number] MR#: [id number] Acc #: [id number] NAME: DAWOOD MUÑOZ : 1945 SEX: F STUDY DATE/TIME: 07/20/2016 11:22 UNIT: ANA ROOM: STUDY DESCRIPTION: CR Chest Single View Portable Attending Physician: Anthony Little M.D. Ordering Physician: Anthony Little M.D. Primary Care Physician: Kristin Lopez M.D. MEDICAL IMAGING REPORT This report is preliminary unless electronic signature is present EXAM Portable chest. INDICATION Shortness of air and cough for the past 6 days. PROCEDURE Frontal view chest. COMPARISON STUDIES 01/08/2013 FINDINGS There is extensive opacity in the left lung with some sparing of the left upper lung zone. There appears to be shift of the heart and mediastinal structures to the left. Chronic parenchymal change in the right lung. No pneumothorax. IMPRESSION 1. Interval shift of the heart and mediastinal structures to the left, with left mid and lower lung zone opacities since 2012. Correlate with any known surgery. This could be postsurgical in appearance or represent left basilar atelectasis or possibly pleural fluid. 2. An ill-defined interstitial prominence in the left upper lung zone could represent atelectasis or infiltrate. 3. Chronic parenchymal change in both lungs. Dictated by... Silas Huffman M.D. THIS IS AN ELECTRONICALLY VERIFIED REPORT [facility] A Service of [facility] RADIOLOGY TEXT RESULTS PATIENT: DAWOOD MUÑOZ LOCATION: [facility] 310-01 : 43 UNIT #: [id number] AGE: [address]: Ana Farias MD SEX: F ORDER DR: Silas Huffman M.D. at 07/21/2016 9:51 AM JAIME/kaushal TD: 07/20/2016 14:21 JOB #: [id number] MEDICAL IMAGING REPORT COPY
--- NOTE | ~2016-07-20 | CO ---
Unit #: [id number] #: [id number] Patient: DAWOOD MUÑOZ [id number] [address] [address] [id number] I MR#: [id number] NAME: DAWOOD MUÑOZ ROOM: 310 Age: 70 Sex: F Admission Date: 07/20/2016 : 1945 Attending Physician: Ana Farias M.D. Primary Care Physician: Kristin Lopez M.D. Consultation Date: 07/20/2016 CONSULTATION REPORT REASON FOR CONSULTATION Lung nodule and COPD exacerbation. HISTORY OF PRESENT ILLNESS This is a 70-year-old female with past medical history of COPD, hypertension, dyslipidemia, cervical cancer, depression, anxiety and an active smoker. Presents with a complaint of cough, shortness of breath. CT of the chest was done and showed dense consolidation in the left lung and also showed right upper lobe nodule. I am seeing the patient at the bedside. Denies any nausea, vomiting, diarrhea. Complaining of shortness of breath. PAST MEDICAL HISTORY 1. COPD. 2. Hypertension. 3. Dyslipidemia. 4. Cervical cancer. 5. Depression. 6. Anxiety. SURGICAL HISTORY 1. Cardiac catheterization. 2. Lung biopsy. 3. Cervical conization. ALLERGIES Keflex, penicillin, influenza. HOME MEDICATIONS Avapro. SOCIAL HISTORY Smokes 1 pack per day. Denies alcohol or drug abuse. PHYSICAL EXAMINATION VITAL SIGNS: Temperature 98, pulse rate 70, respirations 12, blood pressure 130/70. NEUROLOGIC: Awake, alert and oriented. No neuro deficits. HEENT: PERRLA. EOMI. NECK: Supple. No JVD. CHEST: Bilateral air entry. Bilateral mild rhonchi. GI: Nontender. Soft. Bowel sounds positive. EXTREMITIES: No edema. SKIN: No rashes, no ulcer. Unit #: [id number] #: [id number] Patient: DAWOOD MUÑOZ LYMPHATIC: No lymphadenopathy. DIAGNOSTIC STUDIES Labs and imaging have been reviewed. ASSESSMENT 1. Acute exacerbation of COPD. 2. Acute bronchitis. 3. Pneumonia. 4. Parapneumonic effusion. 5. Lung mass. PLAN At this point, plan is to continue the patient on oxygen, bronchodilator, IV steroids, IV antibiotics. I have done a bedside ultrasound with very minute effusion, which I will ask IR to drain in the morning if it is still drainable and will write for (1) cytology, culture, (2) and protein on the pleural fluid. The patient will also need bronchoscopy once her respiratory status allows. Also, will need records from [facility] where her lung biopsy was done, according to the patient. Will review those and make further plans. Please see orders for detailed plan. Thank you very much for this consultation. Dictated by... Manuel Parsons TD: 07/21/2016 09:12 JOB #: [id number] CONSULTATION REPORT X Darren Colbert MD CONSULTATION REPORT
--- NOTE | ~2016-07-20 | CT17 ---
[facility] A Service [facility] RADIOLOGY TEXT RESULTS PATIENT: DAWOOD MUÑOZ LOCATION: [address] : [birth year] UNIT #: [id number] AGE: [address]: Ana Farias MD SEX: F ORDER DR: [id number] [facility] [address]. [place], [place] [address] [id number] I MR#: [id number] Acc #: [id number] NAME: DAWOOD MUÑOZ : 1945 SEX: F STUDY DATE/TIME: 07/22/2016 16:28 UNIT: [facility] ROOM: [facility] STUDY DESCRIPTION: CT Angio Head Attending Physician: Ana Farias M.D. Referring Physician: Gee Lopes M.D. Ordering Physician: Donnie Romero M.D. Primary Care Physician: Kristin Lopez M.D. MEDICAL IMAGING REPORT This report is preliminary unless electronic signature is present EXAM CT angiogram of the head and neck. DATE OF EXAM 07/22/2016 HISTORY Left-sided weakness today lasting 10 minutes to evaluate for CVA. COMMENT CT angiography of the head and neck vessels performed during the intravenous administration of 100 mL of Isovue-370 with imaging acquired in the axial plane followed by multiple reconstructed and reformatted images for the purpose of 3-D CT angiography of the head and neck vessels. COMPARISON There is an earlier noncontrast head CT. TECHNIQUE NOTE: This CT exam was performed with one or more of the following radiation dose reduction techniques: automatic exposure control, adjustment of mA and/or kV according to patient size, and iterative reconstruction. NOTE Abnormalities are seen in the chest. Please refer back to a chest CT from 07/20/2016. No prior study of the neck vessels. FINDINGS CT ANGIOGRAM NECK: There is atherosclerotic vascular calcification at the arch with mild narrowing at the origin of the left common carotid artery, [facility] A [facility] RADIOLOGY TEXT RESULTS PATIENT: DAWOOD MUÑOZ LOCATION: [address] [facility] #: [id number] : [birth year] UNIT #: [id number] AGE: [address]: Ana Farias MD SEX: F ORDER DR: but no hemodynamically-significant narrowing is suspected at great vessel origins from the arch. There are partly seen bilateral pleural effusions and areas of parenchymal consolidation. This time malignancy is not excluded. Heterogeneous appearance to the thyroid gland is nonspecific and best pursued with a nonemergent thyroid ultrasound. Evaluation of the right carotid system shows minimally calcified plaque at the right carotid bifurcation, but there is 0% diameter stenosis by NASCET criteria. The right carotid siphon is widely patent. Assessment of the left carotid system shows mildly calcified plaque at the left carotid bifurcation but by NASCET criteria, 0% diameter stenosis. The left carotid siphon is widely patent. Evaluation of the right vertebral artery shows vessel to be patent throughout the neck, and in its intracranial portion. Evaluation of the left vertebral artery shows vessel to be patent throughout the neck and in its intracranial portion. This is the dominant vessel. Mild calcified plaque at its origin not resulting in hemodynamically significant stenosis. Evaluation of the intracranial vasculature shows that the distal right vertebral artery after the origin of the PICA vessel is hypoplastic. Vessel largely terminates in the PICA. There is origin to the bilateral posterior cerebral arteries via large bilateral posterior communicators. Probably a tiny anterior communicating artery present. There is a small left P1 vessel. The right P1 vessel is very hypoplastic or aplastic. No focal central stenosis is seen. Concern for an aneurysm about 4 x 3 mm left side supraclinoid ICA directed inferiorly essentially from the proximal aspect of the origin of the left posterior communicator. This would be better seen with a conventional angiogram or an MR angiogram if it would alter the patient's management. Given size, it should be characterized further if the patient is a candidate for intervention. It is possible that this is a somewhat tortuous infundibulum, but by size criteria, it is too large to be considered an infundibulum. No intracranial vascular cutoff. Degenerative changes noted in the cervical spine. IMPRESSION 1. By NASCET criteria 0% stenosis at either carotid bifurcation. Both vertebral arteries are patent, left is dominant. Right is smaller and becomes quite hypoplastic after the origin of the PICA. 2. No intracranial vascular cutoff. 3. No focal central stenosis. 4. Possible aneurysm at the origin of the left posterior communicator up to about 3 x 4 mm. If it would alter management given size, it should be further characterized. Correlation with MR angiogram may be of value if the patient is candidate. See above. 5. Abnormal appearance of the visualized lungs. There are at least STS. [facility] A Service of [facility] & [facility] RADIOLOGY TEXT RESULTS PATIENT: DAWOOD MUÑOZ LOCATION: [address] : [birth year] UNIT #: [id number] AGE: [address]: Ana Farias MD SEX: F ORDER DR: pleural effusions and areas of airspace disease. Malignancy is not excluded. There is particular dense spiculated mass lesion partly seen in the right upper lobe. Please refer back to the earlier CT chest and correlate further clinically. 6. Heterogeneous appearance of the thyroid gland is best pursued with nonemergent thyroid ultrasound. STAT * RESULT Dictated by... Vibha Salcido M.D. THIS IS AN ELECTRONICALLY VERIFIED REPORT Vibha Salcido M.D. at 07/22/2016 11:43 PM ANUP/julio TD: 07/22/2016 17:52 JOB #: [id number] MEDICAL IMAGING REPORT COPY
--- NOTE | ~2016-07-20 | TOC ---
Unit #: [id number] #: [id number] Patient: DAWOOD MUÑOZ [id number] [address] [address] [id number] I MR#: [id number] NAME: DAWOOD MUÑOZ. ROOM: [facility] Age: 70 Sex: F Admission Date: 07/20/2016 : 1945 Attending Physician: Ana Farias M.D. Primary Care Physician: Kristin Lopez M.D. TRANSFER OF CARE SUMMARY DISCHARGE DIAGNOSES 1. 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 2. Acute hypoxic respiratory failure. 3. Postobstructive pneumonia. 4. Anxiety. 5. Chronic obstructive pulmonary disease with exacerbation. 6. Hypertension. 7. Hyperlipidemia. 8. History of cervical cancer, status post cervical conization, radiation, and chemotherapy. 9. Anxiety. 10. Depression. 11. Left hemithorax complete opacification and moderate left pleural effusion, status post pleural tap. 12. Mild protein malnutrition. 13. Left upper extremity weakness for 10 minutes post bronchoscopy, resolved, less likely transient ischemic attack. CONSULTATIONS 1. Dr. Horton. 2. Dr. Torres. PROCEDURE Patient had bronchoscopy on July 22, 2016. DIAGNOSTIC STUDIES LABORATORY: Sodium 137, potassium 4.8, creatinine 1, calcium 8.3. WBC 16.5, hemoglobin 13.8, platelets 189,000. (1) negative. AFB not detected. Bronchoscopic cultures shows rare yeast. Cytology from the bronchoscopy shows positive for malignant cells, poorly differentiated nonsmall cell. Legionella negative. Strep pneumonia negative. Sputum cultures negative. IMAGING: Chest x-ray shows complete opacification of the left hemithorax. CT of the thorax without contrast shows complete left hemithorax opacification with moderate left pleural effusion, right upper lobe irregular marginated mass present, right pleural effusion present, pericarinal lymph node present. CAT scan of the head: Negative. CT angio head and neck shows 3 to 4 mm left posterior communicated Unit #: [id number] #: [id number] Patient: DAWOOD MUÑOZ possible aneurysm. HOSPITALIZATION COURSE A 70 year old admitted because of shortness of breath, found to have nonsmall cell lung cancer. Currently, she is in ICU on a high-flow oxygen. She is status post bronchoscopy and pleural tap for pleural effusion. Found to have nonsmall cell lung cancer with stage IV pleural effusion and metastasis to the other lung. The patient will be seen by clinical registered nurse. Dr. Horton is closely following. Continue with high-flow oxygen. Currently, the patient is DNR, very poor prognosis. Daughter is aware of the diagnosis and prognosis. The patient has acute hypoxic respiratory failure, continue the oxygen. Postobstructive pneumonia: Cultures so far negative. The patient will continue with Azactam and Levaquin. Anxiety: Currently stable. Valium has been increased. COPD with exacerbation: Currently, patient is on IV Solu-Medrol. Continue with oxygen and DuoNeb. Discussed with daughter, very poor prognosis. The patient is DNR. Wait for hematology's opinion. Dictated by... Manuel Arndt/elias TD: 07/25/2016 11:53 JOB #: [id number] TRANSFER OF CARE SUMMARY X Ana Farias MD X TRANSFER OF CARE SUMMARY
--- NOTE | ~2016-07-20 | CR72 ---
[facility] A Service of [facility] & [facility] RADIOLOGY TEXT RESULTS PATIENT: DAWOOD MUÑOZ LOCATION: [address] : [birth year] UNIT #: [id number] AGE: [address]: Ana Farias MD SEX: F ORDER DR: [id number] [facility] [address] [place], [place] [address] [id number] I MR#: [id number] Acc #: [id number] NAME: DAWOOD MUÑOZ : 1945 SEX: F STUDY DATE/TIME: 07/23/2016 02:52 UNIT: [facility] ROOM: [facility] STUDY DESCRIPTION: CR Chest Single View Portable Attending Physician: Ana Farias M.D. Ordering Physician: Ana Farias M.D. Primary Care Physician: Kristin Lopez M.D. MEDICAL IMAGING REPORT This report is preliminary unless electronic signature is present EXAM Portable chest 07/23 02:52 INDICATIONS Pneumonia. Lung mass. Cough and shortness of air. FINDINGS AP portable chest compared with 07/22/2016. Extremely dense consolidation in the left poa-gx-lyppk lung is again seen. Infiltrates in the left upper lung appear slightly worsened. Right upper lobe infiltrates are stable. There is developing infiltrate now noted in the right lung base as well. No pneumothorax. Dictated by... Panda Ruggiero Jr., M.D. THIS IS AN ELECTRONICALLY VERIFIED REPORT Panda Ruggiero Jr., M.D. at 07/23/2016 3:56 PM JUSTINE/hung TD: 07/23/2016 06:31 JOB #: [id number] MEDICAL IMAGING REPORT COPY
--- NOTE | ~2016-07-20 | CR72 ---
[facility] A Service of [facility] & [facility] RADIOLOGY TEXT RESULTS PATIENT: DAWOOD MUÑOZ LOCATION: [address] : [birth year] UNIT #: [id number] AGE: [address]: Ana Farias MD SEX: F ORDER DR: [id number] [facility] [address] [place], [place] [address] [id number] I MR#: [id number] Acc #: [id number] NAME: DAWOOD MUÑOZ : 1945 SEX: F STUDY DATE/TIME: 07/24/2016 05:25 UNIT: [facility] ROOM: [facility] STUDY DESCRIPTION: CR Chest Single View Portable Attending Physician: Ana Farias M.D. Ordering Physician: Arik Horton M.D. Primary Care Physician: Kristin Lopez M.D. MEDICAL IMAGING REPORT This report is preliminary unless electronic signature is present EXAM Portable chest 07/24/2016 at 05:25. INDICATIONS Pneumonia. Shortness of air. Lung mass, cough. FINDINGS AP portable chest is compared with 07/23/2016. There is now complete opacification of the left hemithorax. This may be due to worsening pulmonary consolidation and worsening pleural fluid. There is central vascular congestion noted in the right lung. Right lung is unchanged. No pneumothorax is seen. Dictated by... Panda Ruggiero Jr., M.D. THIS IS AN ELECTRONICALLY VERIFIED REPORT Panda Ruggiero Jr., M.D. at 07/25/2016 6:04 AM JUSTINE/caty TD: 07/24/2016 08:13 JOB #: [id number] MEDICAL IMAGING REPORT COPY
--- NOTE | ~2016-07-20 | OR ---
Unit #: [id number] #: [id number] Patient: DAWOOD MUÑOZ [id number] [address] [place], [place] [address] [id number] I MR#: [id number] NAME: DAWOOD MUÑOZ ROOM: [facility] Date of Procedure: 07/22/2016 Admission Date: 07/20/2016 Surgeon: Delores Horton M.D. : 1945 Attending Physician: Ana Farias M.D. Primary Care Physician: Kristin Lopez M.D. PROCEDURE OPERATIVE NOTE PROCEDURE Diagnostic bronchoscopy with bronchoalveolar lavage and transbronchial biopsy under fluoroscopic guidance. INDICATION FOR PROCEDURE Extensive pneumonia and lung mass. SEDATION MAC sedation. COMPLICATIONS Hypoxia and transient left-sided weakness. DESCRIPTION OF PROCEDURE An informed consent was obtained from the patient after explaining the benefits and risks of the procedure. Patient was prepped and positioned in the proper way, and then she was inducted with propofol. Then the bronchoscope was advanced through the oral cavity to the level of the vocal cords. Then 2% lidocaine was instilled, and then the bronchoscope was advanced through the vocal cords into the trachea. At the level of the jaymie, 1% lidocaine was instilled. Then the bronchoscope was advanced into the left main bronchus and the left upper lobe, left lower lobe, and lingula were examined which appeared swollen but with no significant secretions. The bronchoscope was wedged at the level of the left lower lobe and bronchoalveolar lavage was obtained. Then the bronchoscope was retracted. Then we advanced into the right main bronchus and the right upper lobe, right lower lobe, and right middle lobe were examined which appeared normal. Then the bronchoscope was wedged at the level of the anterior segment of the right upper lobe as the apical segment was very difficult to reach, and the forceps was inserted after fluoroscopy guidance and three tissue biopsies were obtained with no complication. The bronchoscope was retracted out then and patient was woken up. However, she immediately after she was finished with the procedure went in severe respiratory distress with hypoxia and confusion. Patient was initially placed on high flow, and then she was transitioned to nonrebreather. Patient was transferred to the ICU where she placed on BiPAP temporarily until she improved. Her transient left-sided weakness has resolved but has raised the concern and suspicion of some carotid stenosis and blockage. Patient is doing okay at this point with no serious complication. Unit #: [id number] #: [id number] Patient: DAWOOD MUÑOZ Dictated by... Manuel Lackey TD: 07/22/2016 20:34 JOB #: [id number] PROCEDURE OPERATIVE NOTE X DELORES LU MD X PROCEDURE OPERATIVE NOTE
--- NOTE | ~2016-07-20 | CR72 ---
[facility] A Service of [facility] & [facility] RADIOLOGY TEXT RESULTS PATIENT: DAWOOD MUÑOZ LOCATION: [address] : [birth year] UNIT #: [id number] AGE: [address]: José Manuel Demarco MD SEX: F ORDER DR: [id number] [facility] [address] [place], [place] [address] [id number] I MR#: [id number] Acc #: [id number] NAME: DAWOOD MUÑOZ. : 1945 SEX: F STUDY DATE/TIME: 07/27/2016 4:50 UNIT: [facility] ROOM: [facility] STUDY DESCRIPTION: CR Chest Single View Portable Attending Physician: Ana Farias M.D. Ordering Physician: Arik Horton M.D. Primary Care Physician: Kristin Lopez M.D. MEDICAL IMAGING REPORT This report is preliminary unless electronic signature is present EXAM Portable AP view of the chest. COMPARISON July 24, 2016 and July 24, 2016. INDICATIONS 70-year-old female with respiratory failure since July 20, 2016. Pleural effusion. FINDINGS/IMPRESSION There is stable volume loss in the left hemithorax with leftward cardiomediastinal shift. There is stable complete opacification left hemithorax. The findings likely represent atelectatic collapse due to mucous plugging or obstructing lesion. There is grossly stable right apical pleural parenchymal scarring. There are interstitial opacities throughout the right lung which are stable perhaps chronic in nature but multifocal pneumonia cannot be excluded. One may consider bronchoscopy to relieve the obstruction of the left bronchial tree. Imaging followup is recommend to ensure opacification of the left hemithorax resolves. Dictated by... Allen Hobson M.D. THIS IS AN ELECTRONICALLY VERIFIED REPORT Allen Hobson M.D. at 07/30/2016 7:03 AM Cleopatra TD: 07/27/2016 10:47 JOB #: [id number] MEDICAL IMAGING REPORT COPY
--- NOTE | ~2016-07-20 | CR72 ---
[facility] A Service of [facility] & [facility] RADIOLOGY TEXT RESULTS PATIENT: DAWOOD MUÑOZ LOCATION: [address] : [birth year] UNIT #: [id number] AGE: [address]: Ana Farias MD SEX: F ORDER DR: [id number] [place] [address] [place], [place] [address] [id number] I MR#: [id number] Acc #: [id number] NAME: DAWOOD MUÑOZ : 1945 SEX: F STUDY DATE/TIME: UNIT: [facility] ROOM: [facility] STUDY DESCRIPTION: CR Chest Single View Portable Attending Physician: Ana Farias M.D. Ordering Physician: Arik Horton M.D. Primary Care Physician: Kristin Lopez M.D. MEDICAL IMAGING REPORT This report is preliminary unless electronic signature is present EXAM Chest portable 07/22/2016 1150 hours HISTORY 70-year-old woman with shortness of air today post bronchoscopy, post attempted thoracentesis. COMPARISON CT chest 07/20/2016 FINDINGS Patient is somewhat rotated to the right. There is persistent dense opacity in the lower half of left chest with airspace changes in the upper lungs left greater than right. Findings in the right upper lung appearing increased from prior chest CT 07/20/2016 and chest x-ray 07/20/2016. There is no pneumothorax. IMPRESSION Rotated film with no pneumothorax on this post procedure film. There is dense opacity of the lower half of the left hemithorax with airspace density in the left upper lung unchanged. There is increasing airspace density in the right upper lung which obscures the nodular appearing area. This has increased in 07/20/2016. Dictated by... Gwen Gonzalez M.D. THIS IS AN ELECTRONICALLY VERIFIED REPORT Gwen Gonzalez M.D. at 07/22/2016 7:08 PM SMM/to TD: 07/22/2016 15:17 [facility] A Service of [facility] & [facility] RADIOLOGY TEXT RESULTS PATIENT: DAWOOD MUÑOZ LOCATION: [address]03 : [birth year] UNIT #: [id number] AGE: [address]: Ana Farias MD SEX: F ORDER DR: JOB #: [id number] MEDICAL IMAGING REPORT COPY
--- NOTE | ~2016-07-20 | XA203 ---
[facility] A Service of [facility] & [facility] RADIOLOGY TEXT RESULTS PATIENT: DAWOOD MUÑOZ LOCATION: [address]03 : [birth year] UNIT #: [id number] AGE: [address]: Ana Farias MD SEX: F ORDER DR: [id number] [place] [id number] [facility] [place], [place] [address] [id number] I MR#: [id number] Acc #: [id number] NAME: DAWOOD MUÑOZ : 1945 SEX: F STUDY DATE/TIME: 07/21/2016 9:00 UNIT: [facility] ROOM: [facility] STUDY DESCRIPTION: XA Thoracentesis Attending Physician: Ana Farias M.D. Ordering Physician: Darren Colbert M.D. Primary Care Physician: Kristin Lopez M.D. MEDICAL IMAGING REPORT This report is preliminary unless electronic signature is present EXAM Ultrasound of the left hemithorax INDICATION Dense consolidation throughout the left lung, as well as suspected parapneumonic effusion on the left. PROCEDURE The risks, benefits, and alternatives to the procedure were explained to the patient and a signed informed consent was obtained. She was seated in the upright position. A preliminary ultrasound of the left hemithorax was performed which demonstrated a small amount of loculated pleural fluid with overlying lung consolidation. This was not felt to be amenable to thoracentesis and the procedure was subsequently terminated. IMPRESSION The patient is not amenable to ultrasound-guided thoracentesis at this time, as there was only a small, loculated collection of pleural fluid surrounded by overlying consolidated lung. Dictated by... Raquel Mclain M.D. THIS IS AN ELECTRONICALLY VERIFIED REPORT Raquel Mclain M.D. at 07/22/2016 5:00 PM AFF/aa TD: 07/22/2016 13:20 JOB #: [id number] MEDICAL IMAGING REPORT COPY
--- NOTE | ~2016-07-20 | CO ---
Unit #: [id number] #: [id number] Patient: DAWOOD MUÑOZ [id number] [facility] [address] [place], [place] [address] [id number] MR#: [id number] NAME: DAWOOD MUÑOZ ROOM: [facility] Age: 70 Sex: F Admission Date: 07/20/2016 : 1945 Attending Physician: José Manuel Demarco M.D. Primary Care Physician: Kristin Lopez M.D. Consultation Date: 07/29/2016 CONSULTATION REPORT DIAGNOSIS Stage 4 poorly differentiated non-small cell carcinoma originating in the left lung with spread to the right lung. CHIEF COMPLAINT Extreme hypoxia with mental status change. HISTORY OF PRESENT ILLNESS Ms. Dawood Muñoz is a 70-year-old white female who carries the diagnosis of chronic hypoxemia and severe COPD. She also suffers from other problems including cervical cancer and hypertension. She was admitted through the emergency department here at [facility] 07/20/16. She had increasing shortness of breath with mild dizziness. Her O2 saturations initially were 92% on 2 L. She was tachycardic. Initial chest x-ray demonstrated what appeared to be extreme left lower lobe pneumonia with a mass identified in the right upper lobe. She was admitted for further evaluation. She underwent bronchoscopy including diagnostic lavage. This has been performed x2. Initially, she was found to have extensive mucosal abnormality involving the left mainstem bronchus. Biopsies at that time demonstrated poorly differentiated small cell malignancy. The patient subsequently underwent bronch with right sided evaluation and lavage also demonstrating highly suspicious cells for malignancy. There was no high grade obstruction noted but more diffuse mucosal edema and obvious malignancy. The patient has undergone progressive downhill course. She is extremely hypoxic, currently on high flow oxygen including non-rebreather mask. She is currently a DO NOT RESUSCITATE patient. She has been evaluated by additional machinist brake and no endobronchial intervention is warranted. The patient's performance status is not compatible with palliative chemotherapy at this point. I have been asked to see her regarding potential for palliative radiotherapy. RECOMMENDATIONS Unfortunately, Ms. Muñoz would not benefit from palliative radiotherapy at this time. She does not have an acute obstructive and localized process that might have benefited from palliative HDR brachytherapy. More conventional external escamilla radiotherapy is likely to be of benefit as patient has what appears to be extensive lymphangitic spread throughout the entire left lung and obvious metastatic disease to the right side. Given performance status, I feel that hospice care is most appropriate. The patient may be a candidate for inpatient hospice care but likely will not be able to make that transfer due to her inability to oxygenate. Unfortunately, I cannot do more for this patient. PAST SURGICAL HISTORY Unit #: [id number] #: [id number] Patient: DAWOOD MUÑOZ Remarkable for conization for cervical cancer five years ago. She also had radiation and chemotherapy at that time. She suffers from COPD, hypertension, anxiety, depression. MEDICAL HISTORY Remarkable for systemic hypertension. MEDICATIONS Include Avapro inhalers. ALLERGIES Patient reports drug allergy to Keflex. NUTRITIONAL STATUS The patient has lost a minimal amount of weight prior to her admission as this was a very rapidly progressive process. SOCIAL HISTORY The patient lives by herself. She does not drink. She is a pack a day smoker and has severe COPD which has been progressive. FAMILY HISTORY Negative for malignancies. REVIEW OF SYSTEMS The patient denies seizure activity, hemoptysis, hematemesis. Had no GI or complaints at time of admission. The patient is on a rebreathing mask, unable to communicate directly with me at this time. PHYSICAL EXAMINATION VITAL SIGNS: Temperature 98.7, respirations 17. Patient on 5 L O2 with O2 saturation barely 83%. Height 5 foot 7, weight 147 pounds, BMI 20. Again, physical exam is extremely limited. I am not able to assess neurological function. The patient is asleep, somewhat sedated. Examination demonstrates no upper or lower extremity edema. CARDIOVASCULAR EXAM: Demonstrates tachycardia with no obvious murmur. Breath sounds are extremely distant in both lung siegel. ABDOMEN: Soft at time of exam. DIAGNOSTIC STUDIES LABORATORY DATA: pCO2 40.5, pO2 62.5 dated 07/20. Glucose 117, creatinine 1.3, sodium 137, potassium 5.8 dated 07/29. Calcium depressed at 7.9, albumin 2.4. Liver enzymes within normal limits. WBC 29.4, hemoglobin 14.1, platelet count 184,000. Approximately 40 minutes spent discussing case with patient. Dictated by... Willy Rojo M.D. Unit #: [id number] #: [id number] Patient: DAWOOD MUÑOZ MRJ/df TD: 07/29/2016 11:27 JOB #: [id number] CC: Manuel Llamas M.D. CONSULTATION REPORT X Willy Rojo MD CONSULTATION REPORT
[~2016-07-20 10:58] MED LIST: ACETAMINOPHEN PO; ALBUTEROL17 GM INH; ASPIRIN81 M1 PO; AZITHROMYCIN250 MG PO; BENICAR PO; BENICAR20 MG PO; COMBIVENT14.7 GM INH; COREG3.125 MG PO; CRESTOR5 MG PO; K-DUR20 ME1 PO; KCL PO; LANSOPRAZOLE30 MG PO; PREDNISONE PO; PREVACID PO; SERTRALINE HCL100 M1 PO; SYMBICORT INH; ZOLOFT100 MG PO
[2016-07-20 11:20] LABS: ARTERIAL BLD GAS O2 SATURATION 90.9 % (90.0-100.0); ARTERIAL BLOOD GAS CARBOXY HB 2.9 %sat (0.0-9.0); ARTERIAL BLOOD GAS HCO3 30.1 mmol/L; ARTERIAL BLOOD GAS PCO2 40.5 mmHg (35.0-45.0)
[2016-07-20 11:21] LABS: ARTERIAL BLOOD GAS ALLEN TEST NORMAL; ARTERIAL BLOOD GAS ART SITE RIGHT RADIAL; ARTERIAL BLOOD GAS DELIVERY NASAL CANNULA; ARTERIAL BLOOD GAS PO2 62.5 mmHg (80.0-100); ARTERIAL DRAW? YES
[2016-07-20 12:29] LABS: BASOPHIL% 0.1 % (0-2.5); EOSINOPHIL# 0.1 X10e3 (0-0.7); EOSINOPHIL% 0.6 % (0.0-7.0); HEMATOCRIT 43.3 % (35.0-45.0); HEMOGLOBIN 14.4 gm/dL (12.0-16.0); LYMPHOCYTE# 0.3 X10e3 (1.0-3.5); LYMPHOCYTE% 2.1 % (17.0-45.0); MEAN CELL VOLUME 86.7 FL (83-96); MEAN CORPUSCULAR HEMOGLOBIN 28.9 PG (28-34); MEAN CORPUSCULAR HGB CONC 33.3 g/dL (30-36); MEAN PLATELET VOLUME 7.8 FL (6.5-11.5); MONOCYTE# 0.8 X10e3 (0-1.0); MONOCYTE% 5.9 % (3.0-12.0); NEUTROPHIL# 12.4 X10e3 (1.5-7.1); NEUTROPHIL% 91.3 % (40-75); PLATELET COUNT 223 X10e3 (140-420); RED CELL DISTRIBUTION WIDTH 14.7 % (11.0-15.5); WHITE BLOOD COUNT 13.6 X10e3 (4.0-10.5)
[2016-07-20 12:33] LABS: POC - CKMB 1.7 ng/mL (0.0-7.9); POC - TROPONIN <0.05 ng/mL (<=0.05)
[2016-07-20 12:34] LABS: DIFF IND NO
[2016-07-20 12:41] LABS: INR 1.1; PROTHROMBIN TIME (PATIENT) 11.2 SECONDS (9.6-11.5)
[2016-07-20 12:51] LABS: BILIRUBIN, DIRECT 0.1 mg/dL (0.0-0.2); BILIRUBIN,INDIRECT 0.6 mg/dL (0.0-0.9); BILIRUBIN,TOTAL 0.7 mg/dL (0.2-2.0); BUN/CREATININE RATIO 10.71; CALCIUM SERUM 8.3 mg/dL (8.4-10.2); CREATININE SERUM 1.4 mg/dL (0.6-1.4); GLOM FILT RATE Estimated 39.3 mL/min (>60); POTASSIUM 3.4 mmol/L (3.5-5.1)
[2016-07-20 20:23] LABS: CK TOTAL 49 IU/L (26-140)
[2016-07-21 01:18] LABS: CK TOTAL 51 IU/L (26-140)
[2016-07-21] MEDS ORDERED: PROTONIX PO (09:35)
[2016-07-21] MEDS ORDERED: ZOLOFT100 MG PO (09:35)
[2016-07-21] MEDS ORDERED: METOPROLOL SUCC50 MG PO (09:35)
[2016-07-21] MEDS ORDERED: AVAPRO300 M1 PO (09:36)
[2016-07-21] MEDS ORDERED: ALBUTEROL17 GM INH (09:37)
[2016-07-21] MEDS ORDERED: LIPITOR20 MG PO (09:37)
[2016-07-21] MEDS ORDERED: LOZOL2.5 M1 PO (09:37)
[2016-07-21] MEDS ORDERED: COMBIVENT U/D3 M2 INH (09:39)
[2016-07-21 14:55] LABS: BASOPHIL% 0.2 % (0-2.5); HEMATOCRIT 40.5 % (35.0-45.0); HEMOGLOBIN 13.2 gm/dL (12.0-16.0); LYMPHOCYTE# 0.3 X10e3 (1.0-3.5); MEAN CELL VOLUME 87.5 FL (83-96); MEAN CORPUSCULAR HEMOGLOBIN 28.6 PG (28-34); MEAN CORPUSCULAR HGB CONC 32.7 g/dL (30-36); MEAN PLATELET VOLUME 8.1 FL (6.5-11.5); MONOCYTE# 1.1 X10e3 (0-1.0); MONOCYTE% 6.1 % (3.0-12.0); NEUTROPHIL# 16.1 X10e3 (1.5-7.1); NEUTROPHIL% 91.7 % (40-75); PLATELET COUNT 224 X10e3 (140-420); RED BLOOD COUNT 4.63 X10e (3.90-5.30); RED CELL DISTRIBUTION WIDTH 14.2 % (11.0-15.5); WHITE BLOOD COUNT 17.6 X10e3 (4.0-10.5)
[2016-07-21 14:58] LABS: DIFF IND YES
[2016-07-21 15:05] LABS: ALBUMIN SERUM 2.8 g/dL (3.5-5.0); BILIRUBIN,TOTAL 0.3 mg/dL (0.2-2.0); BUN/CREATININE RATIO 12.3; CALCIUM SERUM 8.1 mg/dL (8.4-10.2); CREATININE SERUM 1.3 mg/dL (0.6-1.4); GLOM FILT RATE Estimated 42.8 mL/min (>60); MAGNESIUM 1.6 mg/dL (1.6-3.0); POTASSIUM 4.3 mmol/L (3.5-5.1); PROTEIN TOTAL SERUM 5.6 g/dL (6.0-8.3)
[2016-07-21 16:06] LABS: ANISOCYTOSIS SL; PLATELET ESTIMATE NORMAL (NORMAL)
[2016-07-22 06:30] LABS: HEMATOCRIT 41.9 % (35.0-45.0); HEMOGLOBIN 13.3 gm/dL (12.0-16.0); MEAN CELL VOLUME 89.1 FL (83-96); MEAN CORPUSCULAR HEMOGLOBIN 28.3 PG (28-34); MEAN CORPUSCULAR HGB CONC 31.8 g/dL (30-36); MEAN PLATELET VOLUME 8.6 FL (6.5-11.5); RED BLOOD COUNT 4.7 X10e (3.90-5.30); RED CELL DISTRIBUTION WIDTH 14.7 % (11.0-15.5); WHITE BLOOD COUNT 18.2 X10e3 (4.0-10.5)
[2016-07-22 07:24] LABS: ALBUMIN SERUM 2.8 g/dL (3.5-5.0); BILIRUBIN,TOTAL 0.5 mg/dL (0.2-2.0); BUN/CREATININE RATIO 13.33; CALCIUM SERUM 8.3 mg/dL (8.4-10.2); CREATININE SERUM 1.2 mg/dL (0.6-1.4); GLOM FILT RATE Estimated 46.9 mL/min (>60); POTASSIUM 4.3 mmol/L (3.5-5.1); PROTEIN TOTAL SERUM 5.5 g/dL (6.0-8.3)
[2016-07-22 14:29] LABS: BODY FLUID APPEARANCE TURBID; BODY FLUID SOURCE BRONCHIAL LAVAGE
[2016-07-23 06:03] LABS: BASOPHIL# 0.1 X10e3 (0-0.3); BASOPHIL% 0.4 % (0-2.5); EOSINOPHIL% 0.1 % (0.0-7.0); HEMATOCRIT 40.7 % (35.0-45.0); HEMOGLOBIN 13.1 gm/dL (12.0-16.0); LYMPHOCYTE# 0.2 X10e3 (1.0-3.5); LYMPHOCYTE% 1.2 % (17.0-45.0); MEAN CELL VOLUME 88.1 FL (83-96); MEAN CORPUSCULAR HEMOGLOBIN 28.3 PG (28-34); MEAN CORPUSCULAR HGB CONC 32.1 g/dL (30-36); MEAN PLATELET VOLUME 7.9 FL (6.5-11.5); MONOCYTE# 0.5 X10e3 (0-1.0); MONOCYTE% 2.3 % (3.0-12.0); NEUTROPHIL# 19.4 X10e3 (1.5-7.1); PLATELET COUNT 219 X10e3 (140-420); RED BLOOD COUNT 4.62 X10e (3.90-5.30); RED CELL DISTRIBUTION WIDTH 14.9 % (11.0-15.5); WHITE BLOOD COUNT 20.2 X10e3 (4.0-10.5)
[2016-07-23 06:05] LABS: DIFF IND NO
[2016-07-23 06:34] LABS: ALBUMIN SERUM 2.7 g/dL (3.5-5.0); BILIRUBIN,TOTAL 0.2 mg/dL (0.2-2.0); CALCIUM SERUM 8.5 mg/dL (8.4-10.2); CREATININE SERUM 1.2 mg/dL (0.6-1.4); GLOM FILT RATE Estimated 46.9 mL/min (>60); POTASSIUM 4.9 mmol/L (3.5-5.1); PROTEIN TOTAL SERUM 5.5 g/dL (6.0-8.3)
[2016-07-23 11:56] LABS: LEGIONELLA AG URINE NEG (NEG)
[2016-07-24 05:49] LABS: HEMATOCRIT 40.2 % (35.0-45.0); MEAN CELL VOLUME 88.3 FL (83-96); MEAN CORPUSCULAR HEMOGLOBIN 28.5 PG (28-34); MEAN CORPUSCULAR HGB CONC 32.2 g/dL (30-36); MEAN PLATELET VOLUME 7.9 FL (6.5-11.5); RED BLOOD COUNT 4.55 X10e (3.90-5.30); RED CELL DISTRIBUTION WIDTH 14.6 % (11.0-15.5); WHITE BLOOD COUNT 15.6 X10e3 (4.0-10.5)
[2016-07-24 07:09] LABS: BUN/CREATININE RATIO 21.81; CALCIUM SERUM 8.5 mg/dL (8.4-10.2); CREATININE SERUM 1.1 mg/dL (0.6-1.4); GLOM FILT RATE Estimated 51.9 mL/min (>60); POTASSIUM 4.9 mmol/L (3.5-5.1)
[2016-07-25 05:17] LABS: CALCIUM SERUM 8.3 mg/dL (8.4-10.2); GLOM FILT RATE Estimated 57.9 mL/min (>60); POTASSIUM 4.8 mmol/L (3.5-5.1)
[2016-07-25 05:29] LABS: HEMOGLOBIN 13.8 gm/dL (12.0-16.0); MEAN CELL VOLUME 88.1 FL (83-96); MEAN CORPUSCULAR HEMOGLOBIN 28.3 PG (28-34); MEAN CORPUSCULAR HGB CONC 32.1 g/dL (30-36); MEAN PLATELET VOLUME 7.8 FL (6.5-11.5); RED BLOOD COUNT 4.88 X10e (3.90-5.30); RED CELL DISTRIBUTION WIDTH 14.9 % (11.0-15.5); WHITE BLOOD COUNT 16.5 X10e3 (4.0-10.5)
[2016-07-26 05:30] LABS: BASOPHIL# 0.1 X10e3 (0-0.3); BASOPHIL% 0.3 % (0-2.5); EOSINOPHIL# 0.1 X10e3 (0-0.7); EOSINOPHIL% 0.5 % (0.0-7.0); HEMATOCRIT 41.4 % (35.0-45.0); HEMOGLOBIN 13.7 gm/dL (12.0-16.0); LYMPHOCYTE# 0.2 X10e3 (1.0-3.5); LYMPHOCYTE% 1.3 % (17.0-45.0); MEAN CELL VOLUME 87.4 FL (83-96); MEAN CORPUSCULAR HEMOGLOBIN 28.9 PG (28-34); MEAN CORPUSCULAR HGB CONC 33.1 g/dL (30-36); MEAN PLATELET VOLUME 7.9 FL (6.5-11.5); MONOCYTE# 0.8 X10e3 (0-1.0); MONOCYTE% 4.3 % (3.0-12.0); NEUTROPHIL# 18.2 X10e3 (1.5-7.1); NEUTROPHIL% 93.6 % (40-75); PLATELET COUNT 206 X10e3 (140-420); RED BLOOD COUNT 4.74 X10e (3.90-5.30); RED CELL DISTRIBUTION WIDTH 14.7 % (11.0-15.5); WHITE BLOOD COUNT 19.4 X10e3 (4.0-10.5)
[2016-07-26 05:31] LABS: DIFF IND YES
[2016-07-26 05:56] LABS: PLATELET ESTIMATE NORMAL (NORMAL); POIKILOCYTOSIS SL
[2016-07-26 06:08] LABS: ALBUMIN SERUM 2.5 g/dL (3.5-5.0); BILIRUBIN,TOTAL 0.3 mg/dL (0.2-2.0); CALCIUM SERUM 8.5 mg/dL (8.4-10.2); GLOM FILT RATE Estimated 57.9 mL/min (>60); POTASSIUM 4.8 mmol/L (3.5-5.1); PROTEIN TOTAL SERUM 4.7 g/dL (6.0-8.3)
[2016-07-27 04:51] LABS: BASOPHIL# 0.1 X10e3 (0-0.3); BASOPHIL% 0.3 % (0-2.5); DIFF IND NO; EOSINOPHIL# 0.1 X10e3 (0-0.7); EOSINOPHIL% 0.4 % (0.0-7.0); HEMATOCRIT 43.6 % (35.0-45.0); HEMOGLOBIN 14.1 gm/dL (12.0-16.0); LYMPHOCYTE# 0.3 X10e3 (1.0-3.5); LYMPHOCYTE% 1.4 % (17.0-45.0); MEAN CELL VOLUME 89.6 FL (83-96); MEAN CORPUSCULAR HGB CONC 32.4 g/dL (30-36); MONOCYTE# 0.6 X10e3 (0-1.0); MONOCYTE% 2.8 % (3.0-12.0); NEUTROPHIL# 21.1 X10e3 (1.5-7.1); NEUTROPHIL% 95.1 % (40-75); PLATELET COUNT 186 X10e3 (140-420); RED BLOOD COUNT 4.86 X10e (3.90-5.30); RED CELL DISTRIBUTION WIDTH 14.8 % (11.0-15.5); WHITE BLOOD COUNT 22.2 X10e3 (4.0-10.5)
[2016-07-27 06:30] LABS: ALBUMIN SERUM 2.4 g/dL (3.5-5.0); BILIRUBIN,TOTAL 0.2 mg/dL (0.2-2.0); CALCIUM SERUM 8.3 mg/dL (8.4-10.2); GLOM FILT RATE Estimated 57.9 mL/min (>60); MAGNESIUM 1.4 mg/dL (1.6-3.0); PHOSPHOROUS 3.5 mg/dL (2.5-4.6); POTASSIUM 4.9 mmol/L (3.5-5.1); PROTEIN TOTAL SERUM 4.8 g/dL (6.0-8.3)
[2016-07-28 05:30] LABS: BASOPHIL# 0.1 X10e3 (0-0.3); BASOPHIL% 0.5 % (0-2.5); EOSINOPHIL% 0.2 % (0.0-7.0); HEMOGLOBIN 13.3 gm/dL (12.0-16.0); LYMPHOCYTE# 0.2 X10e3 (1.0-3.5); LYMPHOCYTE% 1.1 % (17.0-45.0); MEAN CELL VOLUME 88.3 FL (83-96); MEAN CORPUSCULAR HEMOGLOBIN 28.8 PG (28-34); MEAN CORPUSCULAR HGB CONC 32.6 g/dL (30-36); MONOCYTE# 0.6 X10e3 (0-1.0); MONOCYTE% 2.9 % (3.0-12.0); NEUTROPHIL# 19.9 X10e3 (1.5-7.1); NEUTROPHIL% 95.3 % (40-75); PLATELET COUNT 188 X10e3 (140-420); RED BLOOD COUNT 4.64 X10e (3.90-5.30); RED CELL DISTRIBUTION WIDTH 15.3 % (11.0-15.5); WHITE BLOOD COUNT 20.9 X10e3 (4.0-10.5)
[2016-07-28 05:35] LABS: DIFF IND NO
[2016-07-28 06:20] LABS: BLOOD UREA NITROGEN 32 mg/dL (9-23); BUN/CREATININE RATIO 35.55; CALCIUM SERUM 8.2 mg/dL (8.4-10.2); CARBON DIOXIDE 28 mmol/L (22-31); CHLORIDE 106 mmol/L (100-111); CREATININE SERUM 0.9 mg/dL (0.6-1.4); GLOM FILT RATE Estimated ABOVE60 mL/min (>60); GLUCOSE FASTING 130 mg/dL (70-110); SODIUM 140 mmol/L (135-145)
[2016-07-29 05:38] LABS: HEMATOCRIT 45.2 % (35.0-45.0); HEMOGLOBIN 14.1 gm/dL (12.0-16.0); MEAN CORPUSCULAR HEMOGLOBIN 28.8 PG (28-34); MEAN CORPUSCULAR HGB CONC 31.3 g/dL (30-36); MEAN PLATELET VOLUME 8.1 FL (6.5-11.5); RED BLOOD COUNT 4.91 X10e (3.90-5.30); RED CELL DISTRIBUTION WIDTH 15.8 % (11.0-15.5); WHITE BLOOD COUNT 29.4 X10e3 (4.0-10.5)
[2016-07-29 05:44] LABS: MEAN CELL VOLUME 92.2 FL (83-96)
[2016-07-29 09:40] LABS: BUN/CREATININE RATIO 32.3; CALCIUM SERUM 7.9 mg/dL (8.4-10.2); CREATININE SERUM 1.3 mg/dL (0.6-1.4); GLOM FILT RATE Estimated 42.8 mL/min (>60)
[2016-07-29 09:53] LABS: POTASSIUM 5.8 mmol/L (3.5-5.1)
== END 2016-07-29 15:45 | disposition expired | DRG 871 ==
LOC: CED 10:58 → CEDOF 14:35 → C3A PCU 20:35 → CICCU2 07-22 12:11
PROVIDERS: Emergency Medicine; Family Medicine; Internal Medicine; Internal Medicine Nephrology; Internal Medicine Pulmonary Disease
PROC: 0B9B8ZX Drainage of Left Lower Lobe Bronchus, Via Natural or Artificial Opening Endoscopic, Diagnostic (ICD-10-PCS; principal; 2016-07-22 10:00)
PROC: 0BB48ZX Excision of Right Upper Lobe Bronchus, Via Natural or Artificial Opening Endoscopic, Diagnostic (ICD-10-PCS; 2016-07-22 10:00)
DX: A41.9 Sepsis, unspecified organism (principal); J18.8 Other pneumonia, unspecified organism; J96.01 Acute respiratory failure with hypoxia; J90 Pleural effusion, not elsewhere classified; C34.92 Malignant neoplasm of unspecified part of left bronchus or lung; J94.2 Hemothorax; C34.91 Malignant neoplasm of unspecified part of right bronchus or lung; J96.21 Acute and chronic respiratory failure with hypoxia; J44.0 Chronic obstructive pulmonary disease with (acute) lower respiratory infection; E44.1 Mild protein-calorie malnutrition; J44.1 Chronic obstructive pulmonary disease with (acute) exacerbation; F41.9 Anxiety disorder, unspecified; I10 Essential (primary) hypertension; E78.5 Hyperlipidemia, unspecified; Z85.41 Personal history of malignant neoplasm of cervix uteri; F32.9 Major depressive disorder, single episode, unspecified; Z66 Do not resuscitate; Z51.5 Encounter for palliative care; F17.200 Nicotine dependence, unspecified, uncomplicated; Z88.1 Allergy status to other antibiotic agents; Z88.0 Allergy status to penicillin; Z88.7 Allergy status to serum and vaccine; E87.6 Hypokalemia; J20.9 Acute bronchitis, unspecified
CPT/HCPCS: 36600; 70450; 70496; 70498; 71010; 71250; 76000; 80048; 80053; 80076; 82308; 82550; 82553; 82803; 82947; 83605; 83735; 83880; 84100; 84484; 85025; 85027; 85610; 87040; 87070; 87102; 87106; 87116; 87205; 87206; 87252; 87254; 87278; 87449; 87899; 88108; 88305; 89051; 93005; 94640; 94660; 94760; 94761; 96361; 96365; 96375; 97116; 97162; 97530; 99291; G8978-GP; G8979-GP; J0171; J0456; J0696; J1650; J1956; J2060; J2270; J2405; J2765; J2920; J2930; J3475; Q9967